=== PATIENT | female | born 1935 | race Caucasian/White ===

== ENCOUNTER → 2017-08-11 | Outpatient (CLI) | payer MEDICARE ==
[~2017-08-11] MED LIST: ALLEGRA ALLERG180 M1; ASPI81CH PO; LISI20; SYNTHROID112 MCG PO
== END | disposition home or self-care (01) ==
LOC: LAB EV 12:15
DX: R35.0 Frequency of micturition (principal)
CPT/HCPCS: 87086

== ENCOUNTER 2020-11-19 07:15 | Day surgery (SDC) | payer MEDICARE ==
[~2020-11-19] VITALS: Ht 154.9 cm; Wt 138.8 kg
[~2020-11-19 07:15] MED LIST changes: +LEVSOD100 PO; +SYNTHROID88 MCG PO
--- NOTE | 2020-11-19 09:12 | NUR ---
11/19/20 0912 Neeru Martino DROP IN AT 0739; PLEDGET IN AT 0742
== END 2020-11-19 09:07 | disposition home or self-care (01) ==
LOC: ORSCSDS 07:15
PROVIDERS: Ophthalmology
PROC: 08RK3JZ Replacement of Left Lens with Synthetic Substitute, Percutaneous Approach (ICD-10-PCS; principal; 2020-11-19 08:30)
DX: H25.12 Age-related nuclear cataract, left eye (principal); I10 Essential (primary) hypertension; K21.9 Gastro-esophageal reflux disease without esophagitis; E03.9 Hypothyroidism, unspecified; Z87.891 Personal history of nicotine dependence; Z86.73 Personal history of transient ischemic attack (TIA), and cerebral infarction without residual deficits; Z79.899 Other long term (current) drug therapy; Z79.82 Long term (current) use of aspirin
CPT/HCPCS: J2001; J2250; J3010; J3301; J7040; V2632

== ENCOUNTER → 2021-10-22 | Outpatient (CLI) | payer MEDICARE | END | disposition home or self-care (01) | LOC: LAB 11:41 → LAB SHORT 11:41 | DX: N95.1 Menopausal and female climacteric states (principal); R30.0 Dysuria | CPT/HCPCS: 87077; 87086; 87186 ==

== ENCOUNTER → 2022-12-11 | Outpatient (CLI) | payer MEDICARE | END | disposition home or self-care (01) | LOC: LAB SHORT 13:55 → LAB 13:55 | DX: N39.0 Urinary tract infection, site not specified (principal) | CPT/HCPCS: 87077; 87086; 87186 ==

== ENCOUNTER 2025-03-20 17:47 | Inpatient (IN) | payer MEDICARE ==
[~2025-03-20] VITALS: Ht 157.5 cm; Wt 51.7 kg
[2025-03-20 19:19] LABS: BASOPHILS ABSOLUTE AUTO 0.05 K/mm3 (0.00-0.23); BASOPHILS PERCENT AUTO 1 % (0-2); EOSINOPHILS ABSOLUTE AUTO 0.18 K/mm3 (0.00-0.68); EOSINOPHILS PERCENT AUTO 3 % (0-6); Hematocrit 35.3 % (33.0-51.0); Hemoglobin 12.0 g/dL (11.5-16.0); IMMATURE GRAN ABSOLUTE AUTO 0.02 K/mm3 (0.00-0.10); IMMATURE GRAN PERCENT AUTO 0 % (0-1); LYMPHOCYTES ABSOLUTE AUTO 1.76 K/mm3 (0.84-5.20); LYMPHOCYTES PERCENT AUTO 25 % (21-46); MONOCYTES ABSOLUTE AUTO 0.48 K/mm3 (0.16-1.47); MONOCYTES PERCENT AUTO 7 % (4-13); Mean Corpuscular HGB Conc 34.0 g/dL (31.5-36.5); Mean Corpuscular Volume 93 fL (80-100); NEUTROPHILS ABSOLUTE AUTO 4.46 K/mm3 (1.96-9.15); NEUTROPHILS PERCENT AUTO 64 % (41-73); NRBC ABSOLUTE 0.00 K/mm3 (0.00-0.02); NRBC Auto 0.0 /100 WBC (0.0-0.2); Platelet Count 252 K/mm3 (150-400); RDW Coefficient Variation 13.7 % (11.7-14.2); RDW Standard Deviation 47.0 fL (35.1-46.3)
[2025-03-20 19:31] LABS: Prothrombin Time Results 11.8 Sec (9.7-11.5)
[2025-03-20 19:33] LABS: Alanine Aminotransfer (ALT/SGP 24.0 U/L (12-78); Albumin, Blood 3.8 g/dL (3.4-5.0); Albumin/Globulin Ratio 1.5 (0.8-1.8); Anion Gap 9.0 mmol/L (3-11); Aspartate Aminotrans (AST/SGOT 23.0 U/L (12-37); Bilirubin, Total 0.2 mg/dL (0.1-1.0); Blood Urea Nitrogen 21.0 mg/dL (8-24); CO2, Blood 27.0 mmol/L (21-32); Calcium, Blood 9.3 mg/dL (8.5-10.1); Chloride, Blood 105.0 mmol/L (98-108); Creatinine, Blood 0.82 mg/dL (0.40-1.00); Globulin, Blood 2.5 g/dL (2.2-4.0); Glucose, Blood 101.0 mg/dL (70-99); Potassium, Blood 4.5 mmol/L (3.5-5.5); Sodium, Blood 136.0 mmol/L (136-145); Total Protein, Blood 6.3 g/dL (6.4-8.2)
[2025-03-20 21:03] LABS: Calcium, Ionized (POC) 1.20 mmol/L (1.10-1.46); Chloride (POC) 101 mmol/L (98-108); Creatinine (POC) 0.9 mg/dL (0.6-1.0); Glucose (ISTAT POC) 96 mg/dL (70-99); Hematocrit (POC) 36.0 % (36.0-46.0); Hemoglobin (POC) 12.2 g/dL (12.0-16.0); Potassium (POC) 4.8 mmol/L (3.5-5.5); Sodium (POC) 134 mmol/L (135-148); Total CO2 (POC) 26 mmol/L (21-32)
[2025-03-20] MEDS ORDERED: Ampicillin Sod/Sulbactam Sod 3 GM in NS 100 ML IV ONE (21:55)
[2025-03-21] VITALS (20 sets, daily range): BP systolic 91–152; BP diastolic 52–87
--- NOTE | 2025-03-21 00:10 | NUR ---
Assumed Care from ER Patient is a new admission from the ER, here for likely lower GIB. Had 350cc red output in ER via rectum. AOx4, transferred self to bed from [facility], able to make needs known. Denies dizziness and shortness of breath at the moment. Holding conversation well. Instructed to call for bathroom needs, patient verbalized understanding. Admission paperwork completed by CHRISTOPHER Ball - [employer]. Settled to room at this time. Awaiting General Surgery Consult in the AM (Dr. Miller). NS @ 75. Bed in lowest position, call light in reach.
[2025-03-21] MEDS ORDERED: NS 1,000 ML IV SCH (00:20)
[2025-03-21] MEDS ORDERED: Ondansetron HCl 2 MG / ML 2ML Vial IV PRN (00:20)
--- NOTE | 2025-03-21 02:45 | NUR ---
Red/Bloody BM Pt had bathroom request and concerned that she may be bleeding again. Ambulated w/ patient to bathroom. Denies dizziness and shortness of breath. Verbalized feeling abdominal cramping, but no abdominal pain. First bm had 300cc reddish maroon soft clots w/ some liquidy bright shila blood. Once pt stood up from the toilet, patient c/o not feeling well and increased weakness, a little dizzy. Returned to bed only for patient to request the bathroom again. Used commode instead and had 900cc of similar output via rectum. Patient became immediately diaphoretic, pale, short of breath, and c/o feeling worse than earlier. VS checked, patient is hypotensive with soft BP of 91/54 which is not her baseline. Oral temp checked (see VS). Settled patient to bed.
--- NOTE | 2025-03-21 03:03 | NUR ---
Physician Contact Called Dr. Delroy Meza RE 1200 cc shila red blood via rectal and patient symptomatic (diaphoretic, shortness of breath, hypotensive, increase weakness). Order to give 1u PRBC stat and transfer to PCU. Orders entered.
[2025-03-21 03:06] LABS: BASOPHILS ABSOLUTE AUTO 0.04 K/mm3 (0.00-0.23); BASOPHILS PERCENT AUTO 1 % (0-2); EOSINOPHILS ABSOLUTE AUTO 0.19 K/mm3 (0.00-0.68); EOSINOPHILS PERCENT AUTO 2 % (0-6); Hematocrit 29.9 % (33.0-51.0); Hemoglobin 9.9 g/dL (11.5-16.0); IMMATURE GRAN ABSOLUTE AUTO 0.02 K/mm3 (0.00-0.10); IMMATURE GRAN PERCENT AUTO 0 % (0-1); LYMPHOCYTES ABSOLUTE AUTO 2.49 K/mm3 (0.84-5.20); LYMPHOCYTES PERCENT AUTO 32 % (21-46); MONOCYTES ABSOLUTE AUTO 0.60 K/mm3 (0.16-1.47); MONOCYTES PERCENT AUTO 8 % (4-13); Mean Corpuscular HGB Conc 33.1 g/dL (31.5-36.5); Mean Corpuscular Volume 97 fL (80-100); NEUTROPHILS ABSOLUTE AUTO 4.47 K/mm3 (1.96-9.15); NEUTROPHILS PERCENT AUTO 57 % (41-73); NRBC ABSOLUTE 0.00 K/mm3 (0.00-0.02); NRBC Auto 0.0 /100 WBC (0.0-0.2); Platelet Count 214 K/mm3 (150-400); RDW Coefficient Variation 13.8 % (11.7-14.2); RDW Standard Deviation 49.3 fL (35.1-46.3)
[2025-03-21] MEDS ORDERED: NS 500 ML IV SCH (03:15)
--- NOTE | 2025-03-21 03:50 | NUR ---
Transfer to ICU 07 There were no PCU beds available for this PCU status patient. Received an ICU bed instead, room listed above. Called report to ICU, gave report to ICU break nurse while superintendent building [employer] CHRISTOPHER Ball, sent patient down to ICU w/ gathered belongings and pt chart. Patient was informed of reason for transfer. Care reqlinqished.
[2025-03-21 03:56] LABS: Alanine Aminotransfer (ALT/SGP 18.0 U/L (12-78); Albumin, Blood 3.3 g/dL (3.4-5.0); Albumin/Globulin Ratio 1.6 (0.8-1.8); Anion Gap 10.0 mmol/L (3-11); Aspartate Aminotrans (AST/SGOT 20.0 U/L (12-37); Bilirubin, Total 0.4 mg/dL (0.1-1.0); Blood Urea Nitrogen 22.0 mg/dL (8-24); CO2, Blood 25.0 mmol/L (21-32); Calcium, Blood 8.4 mg/dL (8.5-10.1); Chloride, Blood 106.0 mmol/L (98-108); Creatinine, Blood 0.8 mg/dL (0.40-1.00); Globulin, Blood 2.1 g/dL (2.2-4.0); Glucose, Blood 175.0 mg/dL (70-99); Potassium, Blood 3.9 mmol/L (3.5-5.5); Sodium, Blood 137.0 mmol/L (136-145); Total Protein, Blood 5.4 g/dL (6.4-8.2)
[2025-03-21] MEDS ORDERED: NS 250 ML IV PRN (05:45)
[2025-03-21] MEDS ORDERED: Ampicillin Sod/Sulbactam Sod 3 GM in NS 100 ML IV SCH (06:00)
--- NOTE | 2025-03-21 06:23 | NUR ---
SHIFT SUMMARY PT HAS TOLERATED NIGHT SINCE TRANSFER TO ICU WELL. PT IS ALERT AND ORIENTED X4. PULSE 60s-70s AND BP MAP>65. PT DID NOT HAVE BOWEL MOVEMENT FOR THIS RN. PT STATES NO COMPLAINTS OF PAIN. PT CURRENTLY RECIEVING ONE UNIT OF BLOOD. PT RESTING IN ROOM, CALL LIGHT WITHIN REACH. WILL CONTINUE TO MONITOR UNTIL REPORT PASSED TO DAY SHIFT TEAM.
--- NOTE | 2025-03-21 07:12 | NUR ---
ASSUMED CARE AT 0700. REPORT RECIEVED FROM NOC SHIFT RN. TRANSFUSION INFUSING, SLEEPING, NO ACUTE DISTRESS.
[2025-03-21] MEDS ORDERED: EUTHYROX125 MCG PO (08:34)
[2025-03-21 09:13] LABS: Hematocrit 31.2 % (33.0-51.0); Hemoglobin 10.4 g/dL (11.5-16.0)
[2025-03-21 15:14] LABS: Hematocrit 28.0 % (33.0-51.0); Hemoglobin 9.5 g/dL (11.5-16.0)
--- NOTE | 2025-03-21 17:52 | NUR ---
SHIFT SUMMARY; ASSUMED CARE AT 1600, REPORT FROM CHRISTOPHER CALVIN. A/A/OX4, RESTING IN BED, CALL LIGHT IN REACH, WILL CONTINUE TO MONITOR AND TREAT UNTIL REPORT GIVEN TO RODGER SHIFT RN.
--- NOTE | 2025-03-21 18:02 | NUR ---
SHIFT SUMMARY; ASSUMED CARE AT 0700. A/A/OX4 DURING SHIFT, WITH INTERMITANT CONFUSION WHEN FIRST WAKING UP. SBA TO COMMODE, 2 VERY SMALL BM WITH MINIMAL RED BLOOD. 1 UNIT INFUSION COMPLETE ON SHIFT. VSS, DENIES ABD PAIN, CLEAR DIET, TOLERATING WELL. WILL CONTINUE TO TREND H/H. WILL REPORT TO NOC SHIFT RN AND CHANGE OF SHIFT.
--- NOTE | 2025-03-21 20:30 | NUR ---
ASSUMPTION OF CARE: ASSUMED CARE AT START OF SHIFT (1899). REPORT RECEIVED FROM DAY SHIFT RN. PT IS DOING WELL AND RESTING IN BED. PT IS ALERT AND FOLLWOING COMMANDS. PT DENIES ANY PAIN, CP, OR SOB AT THIS TIME. LUNG SOUNDS ARE CLEAR AND EQUAL BILATERALLY, ON RA WITH SPO2 >95%. SINUS RYTHM WITH SBP: 100-130'S MAP >65 HR: 60-70'S. IV: POWERGLIDE IN LUE, PERIPHERAL IN R FORERARM. PT IS ABLE TO STAND AND USE BEDSIDE COMMODE VIA 1-PERSON ASSIST. LINES AND CORDS PLACED OUT OF REACH. CALL LIGHT PLACED WITHIN REACH.
[2025-03-21 20:55] LABS: Hematocrit 24.1 % (33.0-51.0); Hemoglobin 8.3 g/dL (11.5-16.0)
[2025-03-22] VITALS (13 sets, daily range): BP systolic 105–141; BP diastolic 56–77
[2025-03-22 03:38] LABS: Hematocrit 23.7 % (33.0-51.0); Hemoglobin 8.2 g/dL (11.5-16.0); Mean Corpuscular HGB Conc 34.6 g/dL (31.5-36.5); Mean Corpuscular Volume 93 fL (80-100); NRBC ABSOLUTE 0.00 K/mm3 (0.00-0.02); NRBC Auto 0.0 /100 WBC (0.0-0.2); Platelet Count 167 K/mm3 (150-400); RDW Coefficient Variation 14.6 % (11.7-14.2); RDW Standard Deviation 49.4 fL (35.1-46.3)
[2025-03-22 04:09] LABS: Anion Gap 6.0 mmol/L (3-11); Blood Urea Nitrogen 15.0 mg/dL (8-24); CO2, Blood 26.0 mmol/L (21-32); Calcium, Blood 8.0 mg/dL (8.5-10.1); Chloride, Blood 109.0 mmol/L (98-108); Creatinine, Blood 0.69 mg/dL (0.40-1.00); Glucose, Blood 107.0 mg/dL (70-99); Potassium, Blood 4.1 mmol/L (3.5-5.5); Sodium, Blood 137.0 mmol/L (136-145)
--- NOTE | 2025-03-22 04:40 | NUR ---
UPDATE: PT WOKE UP AROUND 0400 VERY FRUSTRATED AND AGITATED. INTIALLY PT STATED THAT THEY FELT SCARED AND ISOLATED BECAUSE THE LIGHTS WERE OFF THEY COULDN'T FIND THE CALL LIGHT. PRIOR TO THE PT WAKING UP, THEIR CALLL LIGHT WAS PLACED ON THEIR LAP. HOWEVER, WHEN ENTERING THE ROOM THE CALL LIGHT WAS ON THE BEDSIDE TABLE AND THE PT STATED THAT THEY FORGOT THEY HAD PLACED THE CALL LIGHT THEIR. PT WAS SITTING UP IN BED, TRYING TO REMOVE THEIR BLANKETS AND TUGGING AT CORDS. AFTER SHOWING THE PT WHERE THE CALL LIGHT WAS AND PLACING IT BACK IN THEIR HANDS, THE PT STATED THAT THEY ARE UPSET AND FED UP WITH THEIR HOSPITAL STAY. WHEN TALKING TO THE PT AND TRYING TO DETERMINE THEY CAUSE OF THESE EMOTIONS, PT MENTIONED THAT THEY ARE FRUSTRATED BECAUSE NO ONE HAS BEEN ABLE TO TELL THEM WHAT IS CAUSING THE GI BLEED. PT THEN ASKED WHERE BLOOD WAS CREATED IN THE BODY, PT WAS EDUCATED ON HOW BLOOD WAS MADE BUT PT REFUSED TO BELEIVE EDUCATION. PT THEN WENT ON TO EXPLAIN THAT THEY HAVEN'T EATEN SOLID FOOD IN 3 DAYS AMD THEY NEEDED TO EAT FOOD. EXPLAINED TO PT THAT THEY ARE ON A CLEAR LIQUID DIET AND THEY WOULD BE ABLE TO GET SOMETHING THAT APPROVED WITHIN THOSE DIET RESTRICTIONS. PT REFUSED ALL CLEAR LIQUID NUTRIENT OPTIONS EXCEPT ICE WATER AND STATED THAT EATING SOLID FOODS WILL HELP FIX THEIR PROBLEMS. PT THEY WENT ON TO STATE THAT THEY NEEDED TO TALK TO THEIR DR. SO THAT THE DR. COULD CHANGE THEIR DIET RESTRICTIONS AND EXPLAIN TO THE PT WHAT THE EXACT CAUSE OF THEIR BLEEDING IS. ATTEMPTED TO EXPLAIN TO THE PT WHY THEY WERE IN THE HOSPITAL AND WHY THEY WERE ON A CLEAR LIQUID DIET, BUT THE PT WOULD INTRUPT AND STATE THAT THEY WERE TRIED OF HEARING THE SAME EXPLANATIONS OVER AND OVER AGAIN. PT WAS ALSO TOLD THAT THEIR DR. WOULD COME TO SEE THEM IN THE MORNING BUT PT DID NOT WANT TO ACCEPT THAT AND STATED THEY NEED TO COME TALK TO THEM NOW. PT STAED THAT THEY WERE GOING TO CALL 911 AND TELL THE POLICE THAT THEY WERE BEING HELD IN THE HOSPITAL AGAINST THEIR AND THAT THEY WANT THE POLICE TO GO THEIR DOCTOR'S HOME TO FORCE THE DOCTOR TO COME SEE THEM NOW. IT WAS EXPLAINED TO THE PT THAT THEY ARE NOT BEING HELD AT THE HOSPITAL AGAINST THEIR WILL AND THEY ARE ABLE TO LEAVE WHENVER THEY WANT. IT WAS ALSO EXPLAINED TO THE PT THAT THE USING 911 TO FORCE THEIR DOCTOR TO SEE THE PT AT 0400 IS NOT THE APPROPRIATE USE OF THE 911 RESOURCES. PT WAS ALSO TOLD THAT THE THERE IS A NIGHT HOSPITALIST THAT COULD TALK TO THE PT BUT THEIR DIET ORDERS WOULD REMAIN THE SAME BECAUSE THE PT MIGHT HAVE AN ENDOSCOPY PROCEDURE DURING THE DAY AND THE PT CAN'T EAT SOLID FOODS IF THEY ARE GOING TO HAVE THE PROCEDURE. PT REMAINED AGITATED BUT DID NOT WALK TO TALK ANYMORE AND DECIDED TO PULL THE BLANKETS BACK OVER THEM AND LAY DOWN IN BED. ASKED THE PT IF THEY WANTED THEIR LIGHTS OFF AND PT STATED NO, KEEP THE LIGHTS ON. PT WAS GIVEN A NEW CUP OF ICE WATER AND THEIR DOOR WAS CLOSED SO THE PT COULD REST AND RELAX.
--- NOTE | 2025-03-22 06:17 | NUR ---
SHIFT SUMMARY: NO ACUTE CHANGES THROUGHOUT THE SHIFT. PT IS FRUSTRATED WITH HOSPITAL STAY BUT RESTING IN BED. VITAL SIGNS REMAIN STABLE. PT WAS ABLE TO SLEEP FOR A FEW HOURS DURING THE NIGHT. WHEN PT WAS SLEEPING THEIR SPO2 LEVEL WOULD OCCASIONALLY DROP INTO THE 70'S BUT QUICKLY RETURN TO 90'S. ASKED PT IF THE HAVE SLEEP APNEA OR USE OXYGEN AT NIGHT WHEN SLEEPING, BUT PT DENIES HAVING SLEEP APNEA. PT REFUSED SUPPLEMENTAL O2 WHEN SLEEPING. LINES AND CORDS PLACED OUT OF REACH. CALL LIGHT PLACED WITHIN REACH.
--- NOTE | 2025-03-22 08:40 | NUR ---
ASSUMED CARE NOTE: PT ALERT AND ORIENTED X 4, ABLE TO FOLLOW COMMANDS AND COMMUNICATE NEEDS. PT STATES SHE IS AGITATED WITH BEING UNABLE TO EAT. PT REMAINS ON RA, NO RESP DISTRESS NOTED. PT IN SR WITH HR IN THE 70'S, BP STABLE. PT DENIES NAUSEA AT THIS TIME, ACTIVE BOWEL TONES IN ALL QUADRANTS. PT REFUSED ORAL CARE, EDUCATED ON RISK. PT REFUSING TO BE ASSISTED WITH REPOSITIONING ABLE TO REPOSITION SELF IN BED. PT REFUSED SCD'S, EDUCATED ON RISK AND BENEFITS. PT NPO PER ORDER. PLAN OF CARE ONGOING.
--- NOTE | 2025-03-22 11:51 | NUR ---
AMA DISCHARGE: PT ALERT AND ORIENTED X 4, ABLE TO COMMUNICATE NEEDS. PT REMOVING ALL LINES, DRESSING SELF, WANTING TO LEAVE THE HOSPITAL. PT EDUCATED THAT SHE DOES NOT HAVE DISCHARGE PAPERWORK. PT RAISED VOICE AND STATED " I DO NOT CARE I AM LEAVING AND GOING HOME" PT EDUCATED ON RISK OF LEAVING AGAINST MEDICAL ADVICE. PT ALSO EDUCATED ON THE BENEFITS OF STAYING. PT REFUSED TO SIGN AMA PAPERWORK, IV'S REMOVED. PT DRESSED SELF, AND CALLED FOR A RIDE HOME. ALL BELONGINGS RETURNED TO PATIENT. NOTIFIED. PT LEFT AT 1145.
== END 2025-03-22 11:53 | disposition left against medical advice (07) | DRG 378 ==
LOC: ER 17:47 → ERHOLD 17:48 → ICUE 17:48 → MEDS 17:48 → ICUE 03-21 03:24
PROVIDERS: Emergency Medicine; Internal Medicine; Student in an Organized Health Care Education/Training Program; ADMIT Internal Medicine
PROC: 3E03329 Introduction of Other Anti-infective into Peripheral Vein, Percutaneous Approach (ICD-10-PCS; 2025-03-20)
PROC: 30233N1 Transfusion of Nonautologous Red Blood Cells into Peripheral Vein, Percutaneous Approach (ICD-10-PCS; principal; 2025-03-21)
DX: K57.31 Diverticulosis of large intestine without perforation or abscess with bleeding (principal); D62 Acute posthemorrhagic anemia; E03.9 Hypothyroidism, unspecified; M19.90 Unspecified osteoarthritis, unspecified site; I10 Essential (primary) hypertension; I95.9 Hypotension, unspecified; K52.9 Noninfective gastroenteritis and colitis, unspecified; R41.0 Disorientation, unspecified; Z88.2 Allergy status to sulfonamides; Z88.8 Allergy status to other drugs, medicaments and biological substances; Z79.82 Long term (current) use of aspirin; Z79.899 Other long term (current) drug therapy; Z79.890 Hormone replacement therapy; Z53.29 Procedure and treatment not carried out because of patient's decision for other reasons
CPT/HCPCS: 36415; 74174; 74177; 80047; 80048; 80053; 83605; 83690; 83880; 85014; 85018; 85025; 85027; 85610; 85730; 86850; 86900; 86901; 86923; 93976; 96365-59; 96366; 96376; 99285-25; A9270; C1751; G0378; J0295; J7030; P9016; Q9967

== ENCOUNTER → 2025-03-26 | Outpatient (CLI) | payer MEDICARE ==
[~2025-03-26] MED LIST changes: +EUTHYROX125 MCG PO
[2025-03-26 18:00] LABS: BASOPHILS ABSOLUTE AUTO 0.02 K/mm3 (0.00-0.23); BASOPHILS PERCENT AUTO 0 % (0-2); EOSINOPHILS ABSOLUTE AUTO 0.20 K/mm3 (0.00-0.68); EOSINOPHILS PERCENT AUTO 3 % (0-6); Hematocrit 23.8 % (33.0-51.0); Hemoglobin 7.8 g/dL (11.5-16.0); IMMATURE GRAN ABSOLUTE AUTO 0.02 K/mm3 (0.00-0.10); IMMATURE GRAN PERCENT AUTO 0 % (0-1); LYMPHOCYTES ABSOLUTE AUTO 1.32 K/mm3 (0.84-5.20); LYMPHOCYTES PERCENT AUTO 17 % (21-46); MONOCYTES ABSOLUTE AUTO 0.58 K/mm3 (0.16-1.47); MONOCYTES PERCENT AUTO 7 % (4-13); Mean Corpuscular HGB Conc 32.8 g/dL (31.5-36.5); Mean Corpuscular Volume 98 fL (80-100); NEUTROPHILS ABSOLUTE AUTO 5.67 K/mm3 (1.96-9.15); NEUTROPHILS PERCENT AUTO 73 % (41-73); NRBC ABSOLUTE 0.00 K/mm3 (0.00-0.02); NRBC Auto 0.0 /100 WBC (0.0-0.2); Platelet Count 276 K/mm3 (150-400); RDW Coefficient Variation 14.8 % (11.7-14.2); RDW Standard Deviation 53.1 fL (35.1-46.3)
[2025-03-27 02:35] LABS: Alanine Aminotransfer (ALT/SGP 23.0 U/L (12-78); Albumin, Blood 3.4 g/dL (3.4-5.0); Albumin/Globulin Ratio 1.5 (0.8-1.8); Anion Gap 10.0 mmol/L (3-11); Aspartate Aminotrans (AST/SGOT 26.0 U/L (12-37); Bilirubin, Total 0.3 mg/dL (0.1-1.0); Blood Urea Nitrogen 12.0 mg/dL (8-24); CO2, Blood 28.0 mmol/L (21-32); Calcium, Blood 9.0 mg/dL (8.5-10.1); Chloride, Blood 104.0 mmol/L (98-108); Creatinine, Blood 0.7 mg/dL (0.40-1.00); Globulin, Blood 2.2 g/dL (2.2-4.0); Glucose, Blood 88.0 mg/dL (70-99); Potassium, Blood 4.1 mmol/L (3.5-5.5); Sodium, Blood 138.0 mmol/L (136-145); Thyroid Stimulating Hormone 7.03 uIU/mL (0.360-4.800); Total Protein, Blood 5.6 g/dL (6.4-8.2)
== END | disposition home or self-care (01) ==
LOC: LAB SHORT 16:19 → LAB 16:19
PROVIDERS: Nurse Practitioner Family
DX: K62.5 Hemorrhage of anus and rectum (principal); I10 Essential (primary) hypertension
CPT/HCPCS: 80053; 84443; 85025